=== PATIENT | female | born 1960 | race Caucasian/White ===

== ENCOUNTER 2020-06-27 01:11 | Inpatient (IN) | payer OTHER ==
[2020-06-27] MEDS ORDERED: SODIUM CHLORIDE 0.9% 1,000 ML IV STA ×3 (01:18→03:30)
--- NOTE | 2020-06-27 01:19 | ED ---
Altered Mental Status HPI - General Stated Complaint: altered mental status Time Seen by Provider: 06/27/20 01:15 Source: RN notes reviewed, old records reviewed Limitations: altered mental status, physical limitation - History of Present Illness Initial Comments: This is a 5-year-old female DF for evaluation patient Dese for altered mental status with history of liver disease. No prior hospitalizations here in the ER history. From EMS and patient's family patient unable to provide history secondary to encephalopathy, she is significantly altered MD Complaint: altered mental status, confusion -: days(s) Severity: mild Consistency of Symptoms: getting worse Context: history of similar presentation, liver disease, other (History of liver disease) Associated Symptoms: weakness - Related Data Allergies Allergy/AdvReac Type Severity Reaction Status Date / Time Unable to Assess Allergy Verified 06/27/20 01:22 Review of Systems ROS Statement: Those systems with pertinent positive or pertinent negative responses have been documented in the HPI. ROS Other: All systems not noted in ROS Statement are negative. General Exam Limitations: altered mental status General appearance: alert, in no apparent distress Head exam: Present: atraumatic, normocephalic, normal inspection Eye exam: Present: normal appearance, PERRL, EOMI. Absent: scleral icterus, conjunctival injection, periorbital swelling ENT exam: Present: normal exam, mucous membranes moist Neck exam: Present: normal inspection. Absent: tenderness, meningismus, lymphadenopathy Respiratory exam: Present: normal lung sounds bilaterally. Absent: respiratory distress, wheezes, rales, rhonchi, stridor Cardiovascular Exam: Present: regular rate, normal rhythm, normal heart sounds. Absent: systolic murmur, diastolic murmur, rubs, gallop, clicks GI/Abdominal exam: Present: soft, normal bowel sounds. Absent: distended, tenderness, guarding, rebound, rigid Extremities exam: Present: normal inspection, full ROM, normal capillary refill. Absent: tenderness, pedal edema, joint swelling, calf tenderness Back exam: Present: normal inspection Neurological exam: Present: alert, oriented X3, CN II-XII intact Psychiatric exam: Present: normal affect, normal mood Skin exam: Present: warm, dry, intact, normal color. Absent: rash Course Vital Signs 06/27/20 01:14 Temperature 98.2 F Pulse Rate 94 Respiratory 16 Rate Blood Pressure 114/88 O2 Sat by Pulse 100 Oximetry - Reevaluation(s) Reevaluation #1: 06/27/20 03:36 Medical record is reviewed Reevaluation #2: 06/27/20 03:36 Patient has no significant clinical condition changes here in the ER no improvement - Consultations Consultation #1: Spoke with Dr. Jimbo hearn who agreed to admit this patient Medical Decision Making - Medical Decision Making 59 female who we will admit for hepatic encephalopathy with confounding pancreatitis. Patient has history of liver disease, unknown drug or alcohol abuse history. Patient unable to find history secondary to severe encephalopathy - Lab Data Result diagrams: 06/27/20 01:30 06/27/20 01:30 Lab Results 06/27/20 06/27/20 06/27/20 Range/Units 01:30 01:30 01:30 WBC 8.4 (3.8-10.6) k/uL RBC 2.86 L (3.80-5.40) m/uL Hgb 10.0 L (11.4-16.0) gm/dL Hct 31.0 L (34.0-46.0) % MCV 108.6 H (80.0-100.0) fL MCH 34.9 (25.0-35.0) pg MCHC 32.1 (31.0-37.0) g/dL RDW 15.9 H (11.5-15.5) % Plt Count 155 (150-450) k/uL MPV 7.3 Neutrophils % (Manual) 68 % Lymphocytes % (Manual) 21 % Monocytes % (Manual) 10 % Eosinophils % (Manual) 1 % Neutrophils # (Manual) 5.71 (1.3-7.7) k/uL Lymphocytes # (Manual) 1.76 (1.0-4.8) k/uL Monocytes # (Manual) 0.84 (0-1.0) k/uL Eosinophils # (Manual) 0.08 (0-0.7) k/uL Nucleated RBCs 0 (0-0) /100 WBC Differential Comment Manual Slide Review Performed Polychromasia Present Poikilocytosis (manual Present Macrocytosis Marked A PT 17.0 H (9.0-12.0) sec INR 1.7 H (<1.2) Sodium 136 L (137-145) mmol/L Potassium 3.8 (3.5-5.1) mmol/L Chloride 107 (98-107) mmol/L Carbon Dioxide 22 (22-30) mmol/L Anion Gap 7 mmol/L BUN 30 H (7-17) mg/dL Creatinine 0.96 (0.52-1.04) mg/dL Est GFR (CKD-EPI)AfAm 74 (>60 ml/min/1.73 sqM) Est GFR (CKD-EPI)NonAf 65 (>60 ml/min/1.73 sqM) Glucose 106 H (74-99) mg/dL Plasma Lactic Acid Marino (0.7-2.0) mmol/L Calcium 8.9 (8.4-10.2) mg/dL Phosphorus 3.3 (2.5-4.5) mg/dL Magnesium 1.9 (1.6-2.3) mg/dL Total Bilirubin 3.8 H (0.2-1.3) mg/dL AST 220 H (14-36) U/L ALT 47 H (4-34) U/L Alkaline Phosphatase 81 (38-126) U/L Ammonia (<30) umol/L Total Protein 7.1 (6.3-8.2) g/dL Albumin 3.0 L (3.5-5.0) g/dL Lipase 1235 H (23-300) U/L Urine Color Urine Appearance (Clear) Urine pH (5.0-8.0) Ur Specific [place] (1.001-1.035) Urine Protein (Negative) Urine Glucose (UA) (Negative) Urine Ketones (Negative) Urine Blood (Negative) Urine Nitrite (Negative) Urine Bilirubin (Negative) Urine Urobilinogen (<2.0) mg/dL Ur Leukocyte Esterase (Negative) Urine RBC (0-5) /hpf Urine WBC (0-5) /hpf Urine Bacteria (None) /hpf Urine Opiates Screen (NotDetected) Ur Oxycodone Screen (NotDetected) Urine Methadone Screen (NotDetected) Ur Propoxyphene Screen (NotDetected) Ur Barbiturates Screen (NotDetected) U Tricyclic Antidepress (NotDetected) Ur Phencyclidine Scrn (NotDetected) Ur Amphetamines Screen (NotDetected) U Methamphetamines Scrn (NotDetected) U Benzodiazepines Scrn (NotDetected) Urine Cocaine Screen (NotDetected) U Marijuana (THC) Screen (NotDetected) Serum Alcohol <10 mg/dL 06/27/20 06/27/20 Range/Units 01:50 02:21 WBC (3.8-10.6) k/uL RBC (3.80-5.40) m/uL Hgb (11.4-16.0) gm/dL Hct (34.0-46.0) % MCV (80.0-100.0) fL MCH (25.0-35.0) pg MCHC (31.0-37.0) g/dL RDW (11.5-15.5) % Plt Count (150-450) k/uL MPV Neutrophils % (Manual) % Lymphocytes % (Manual) % Monocytes % (Manual) % Eosinophils % (Manual) % Neutrophils # (Manual) (1.3-7.7) k/uL Lymphocytes # (Manual) (1.0-4.8) k/uL Monocytes # (Manual) (0-1.0) k/uL Eosinophils # (Manual) (0-0.7) k/uL Nucleated RBCs (0-0) /100 WBC Differential Comment Manual Slide Review Polychromasia Poikilocytosis (manual Macrocytosis PT (9.0-12.0) sec INR (<1.2) Sodium (137-145) mmol/L Potassium (3.5-5.1) mmol/L Chloride (98-107) mmol/L Carbon Dioxide (22-30) mmol/L Anion Gap mmol/L BUN (7-17) mg/dL Creatinine (0.52-1.04) mg/dL Est GFR (CKD-EPI)AfAm (>60 ml/min/1.73 sqM) Est GFR (CKD-EPI)NonAf (>60 ml/min/1.73 sqM) Glucose (74-99) mg/dL Plasma Lactic Acid Marino 3.4 H* (0.7-2.0) mmol/L Calcium (8.4-10.2) mg/dL Phosphorus (2.5-4.5) mg/dL Magnesium (1.6-2.3) mg/dL Total Bilirubin (0.2-1.3) mg/dL AST (14-36) U/L ALT (4-34) U/L Alkaline Phosphatase (38-126) U/L Ammonia 231 H (<30) umol/L Total Protein (6.3-8.2) g/dL Albumin (3.5-5.0) g/dL Lipase (23-300) U/L Urine Color Yellow Urine Appearance Cloudy H (Clear) Urine pH 5.5 (5.0-8.0) Ur Specific [place] 1.019 (1.001-1.035) Urine Protein Trace H (Negative) Urine Glucose (UA) Negative (Negative) Urine Ketones Negative (Negative) Urine Blood Negative (Negative) Urine Nitrite Negative (Negative) Urine Bilirubin Negative (Negative) Urine Urobilinogen <2.0 (<2.0) mg/dL Ur Leukocyte Esterase Small H (Negative) Urine RBC <1 (0-5) /hpf Urine WBC 1 (0-5) /hpf Urine Bacteria Rare H (None) /hpf Urine Opiates Screen Not Detected (NotDetected) Ur Oxycodone Screen Not Detected (NotDetected) Urine Methadone Screen Not Detected (NotDetected) Ur Propoxyphene Screen Not Detected (NotDetected) Ur Barbiturates Screen Not Detected (NotDetected) U Tricyclic Antidepress Not Detected (NotDetected) Ur Phencyclidine Scrn Not Detected (NotDetected) Ur Amphetamines Screen Not Detected (NotDetected) U Methamphetamines Scrn Not Detected (NotDetected) U Benzodiazepines Scrn Not Detected (NotDetected) Urine Cocaine Screen Not Detected (NotDetected) U Marijuana (THC) Screen Not Detected (NotDetected) Serum Alcohol mg/dL Disposition Clinical Impression: Altered mental status, Hepatic encephalopathy Disposition: ADMITTED IP TO THIS [facility] Condition: Serious Is patient prescribed a controlled substance at d/c from ED?: No Referrals: None,Stated [Primary Care Provider] - 1-2 days
[2020-06-27 01:49] LABS: INR 1.7 (<1.2)
[2020-06-27 01:53] LABS: ALT 47 U/L (4-34); AST 220 U/L (14-36); African American GFR (CKD) 74 (>60 ml/min/1.73 sqM); Alcohol <10 mg/dL; Alkaline Phosphatase 81 U/L (38-126); Anion Gap 7 mmol/L; Blood Urea Nitrogen 30 mg/dL (7-17); Calcium 8.9 mg/dL (8.4-10.2); Carbon Dioxide 22 mmol/L (22-30); Chloride 107 mmol/L (98-107); Glucose 106 mg/dL (74-99); Lipase 1235 U/L (23-300); Magnesium 1.9 mg/dL (1.6-2.3); Non-African American GFR(CKD) 65 (>60 ml/min/1.73 sqM); Phosphorus 3.3 mg/dL (2.5-4.5); Potassium 3.8 mmol/L (3.5-5.1); Sodium 136 mmol/L (137-145); Total Bilirubin 3.8 mg/dL (0.2-1.3); Total Protein 7.1 g/dL (6.3-8.2)
[2020-06-27 01:55] LABS: MCH 34.9 pg (25.0-35.0); MCHC 32.1 g/dL (31.0-37.0); MCV 108.6 fL (80.0-100.0); Macrocytosis Marked; Mean Platelet Volume 7.3; Platelet Count 155 k/uL (150-450); RBC 2.86 m/uL (3.80-5.40); RDW 15.9 % (11.5-15.5); WBC 8.4 k/uL (3.8-10.6)
[2020-06-27 02:29] LABS: Eosinophils # (M) 0.08 k/uL (0-0.7); Lymphocytes # (M) 1.76 k/uL (1.0-4.8); Monocytes # (M) 0.84 k/uL (0-1.0); Neutrophils # (M) 5.71 k/uL (1.3-7.7); Neutrophils % (M) 68 %; Nucleated Red Blood Cells 0 /100 WBC (0-0); Total Cells Counted 100
[2020-06-27 02:30] LABS: Poikilocytosis (M) Present; Polychromasia Present
[2020-06-27 02:58] LABS: Lactic Acid, Venous 3.4 mmol/L (0.7-2.0)
[2020-06-27 03:17] LABS: Appearance,Urine Cloudy (Clear); Bacteria,Urine Rare /hpf; Bilirubin,Urine Negative (Negative); Blood,Urine Negative (Negative); Color,Urine Yellow; Glucose,Urine (UA) Negative (Negative); Ketones,Urine Negative (Negative); Leukocyte Esterase,Urine Small (Negative); Nitrite,Urine Negative (Negative); PH, Urine 5.5 (5.0-8.0); Protein,Urine Trace (Negative); RBC,Urine <1 /hpf (0-5); Specific Gravity,Urine 1.019 (1.001-1.035); Urobilinogen,Urine <2.0 mg/dL (<2.0); WBC,Urine 1 /hpf (0-5)
[2020-06-27 03:18] LABS: Amphetamine Screen,Urine Not Detected (NotDetected); Barbiturate Screen,Urine Not Detected (NotDetected); Benzodiazepines Screen,Urine Not Detected (NotDetected); Cocaine Screen,Urine Not Detected (NotDetected); Methadone Screen, Urine Not Detected (NotDetected); Opiate Screen,Urine Not Detected (NotDetected); Oxycodone Screen, Urine Not Detected (NotDetected); Phencyclidine Screen,Urine Not Detected (NotDetected); Tricyclic Antidepressant,Urine Not Detected (NotDetected); Urn Cannabinoid Scrn Not Detected (NotDetected)
[2020-06-27] MEDS ORDERED: NALOXONE 0.4 MG/ML 1 ML VIAL IV PRN (03:30)
[2020-06-27] MEDS ORDERED: THIAMINE 100 MG/ML 2 ML VIAL IM STA (03:30)
[2020-06-27] MEDS ORDERED: SODIUM CHLORIDE 0.9% 500 ML 500 ML IV STA (03:30)
[2020-06-27] MEDS ORDERED: LORazepam 2 MG/ML INJ IV PRN ×3 (03:30)
[2020-06-27] MEDS ORDERED: LACTULOSE 200 GM/300 ML (FROM 1/2 GAL JUG) RECTAL ONE (04:00)
[2020-06-27] MEDS: DEXTROSE 5%-0.45% NACL 1,000 ML IV SCH ×2 (04:05→16:38)
--- NOTE | 2020-06-27 05:00 | P.HPIM ---
History of Present Illness H&P Date: 06/27/20 Patient is a 59-year-old female with a PMH of liver disease of unknown etiology who was brought into the emergency room due to altered mental status. The patient had apparently recently been evaluated at [facility] where she had undergone a paracentesis (based upon the papers brought in by EMS provided to them by patient's friends). She had been staying with a group of friends since then the noted that the patient's mentation gradually worsened to the point where she was unaware of her surroundings and not able to converse. At time of the interview, the patient was stuporous with moaning and moving extremities upon stimulation. No history obtained. Attempted to contact the friends on the number in the chart ([phone]) with no response. The patient's evaluation from the emergency room was reviewed with laboratory evaluation showing an ammonia of 231, lipase 1235, albumin 3.0, AST 220, ALT 47, lactic acid 3.4, INR 1.7, and a hemoglobin of 10.0. Review of Systems ROS unobtainable: due to mental status Past Medical History Past Medical History: Liver Disease History of Any Multi-Drug Resistant Organisms: Unobtainable Past Psychological History: Unable to Obtain Smoking Status: Unknown if ever smoked Past Alcohol Use History: Unable to Obtain Past Drug Use History: Unable to Obtain Medications and Allergies Allergies Allergy/AdvReac Type Severity Reaction Status Date / Time Unable to Assess Allergy Verified 06/27/20 01:22 Physical Exam Vitals: Vital Signs Temp Pulse Resp BP Pulse Ox 06/27/20 04:00 86 16 114/66 98 06/27/20 03:00 80 16 107/70 98 06/27/20 02:00 83 16 101/64 99 06/27/20 01:14 98.2 F 94 16 114/88 100 Intake and Output 06/26/20 06/26/20 06/27/20 14:59 22:59 06:59 Other: Weight 83.915 kg General: Jaundiced female, no distress, appears at stated age, overweight Derm: no unusual rashes/lesions, no unusual ecchymoses, warm, dry Head: atraumatic, normocephalic, symmetric Eyes:Scleral icterus, pupils equal round reactive to light ENT: Nose and ears atraumatic Neck: No thyromegaly, no cervical lymphadenopathy, trachea midline, supple Mouth: no lip lesion Cardiovascular: S1S2 reg, no murmur, positive posterior tibial pulse bilateral, 1+ bilateral lower extremity pitting edema, capillary refill less than 2 seconds Lungs: CTA bilateral, no rhonchi, no rales , no accessory muscle use Abdominal: Distended with palpable fluid thrill, no guarding Ext: no gross muscle atrophy, no contractures, Neuro: Not following commands, moving all extremities Psych: Stuporous Results CBC & Chem 7: 06/27/20 01:30 06/27/20 01:30 Labs: Abnormal Lab Results - Last 24 Hours (Table) 06/27/20 06/27/20 06/27/20 Range/Units 01:30 01:30 01:30 RBC 2.86 L (3.80-5.40) m/uL Hgb 10.0 L (11.4-16.0) gm/dL Hct 31.0 L (34.0-46.0) % MCV 108.6 H (80.0-100.0) fL RDW 15.9 H (11.5-15.5) % Macrocytosis Marked A PT 17.0 H (9.0-12.0) sec INR 1.7 H (<1.2) Sodium 136 L (137-145) mmol/L BUN 30 H (7-17) mg/dL Glucose 106 H (74-99) mg/dL Plasma Lactic Acid Mar[place] (0.7-2.0) mmol/L Total Bilirubin 3.8 H (0.2-1.3) mg/dL AST 220 H (14-36) U/L ALT 47 H (4-34) U/L Ammonia (<30) umol/L Albumin 3.0 L (3.5-5.0) g/dL Lipase 1235 H (23-300) U/L Urine Appearance (Clear) Urine Protein (Negative) Ur Leukocyte Esterase (Negative) Urine Bacteria (None) /hpf 06/27/20 06/27/20 Range/Units 01:50 02:21 RBC (3.80-5.40) m/uL Hgb (11.4-16.0) gm/dL Hct (34.0-46.0) % MCV (80.0-100.0) fL RDW (11.5-15.5) % Macrocytosis PT (9.0-12.0) sec INR (<1.2) Sodium (137-145) mmol/L BUN (7-17) mg/dL Glucose (74-99) mg/dL Plasma Lactic Acid Marino 3.4 H* (0.7-2.0) mmol/L Total Bilirubin (0.2-1.3) mg/dL AST (14-36) U/L ALT (4-34) U/L Ammonia 231 H (<30) umol/L Albumin (3.5-5.0) g/dL Lipase (23-300) U/L Urine Appearance Cloudy H (Clear) Urine Protein Trace H (Negative) Ur Leukocyte Esterase Small H (Negative) Urine Bacteria Rare H (None) /hpf Assessment and Plan Plan: Hepatic encephalopathy in setting of liver failure -Unclear etiology -Attempt to obtain collateral information from [facility] or friends in a.m. -GI consult -Continue with lactulose -Monitor liver function tests and lipase levels Lactic acidosis -Monitor to resolution Macrocytic anemia -Continue to monitor for now -Check Folic acid and B12 levels Elevated INR -Likely due to chronic liver disease -No signs of active bleeding at this time -Monitor for now DVT prophylaxis -IPCDs The patient is admitted with an anticipated greater than 2 midnight stay for evaluation of Hepatic encephalopathy CODE STATUS: Full Code Discussed with: Patient Anticipated discharge date: 3-[address]: Home A total of 40 minutes was spent on the care of this complex patient more than 50% of the time was spent in counseling and care coordination.
[2020-06-27 06:38] LABS: HCT 29.4 % (34.0-46.0); HGB 9.8 gm/dL (11.4-16.0); MCH 36.5 pg (25.0-35.0); MCHC 33.5 g/dL (31.0-37.0); Macrocytosis Marked; Mean Platelet Volume 7.7; Platelet Count 129 k/uL (150-450); RDW 15.4 % (11.5-15.5); WBC 6.8 k/uL (3.8-10.6)
[2020-06-27 06:50] LABS: MCV 108.9 fL (80.0-100.0)
[2020-06-27] MEDS: PANTOPRAZOLE 40 MG/10 ML VIAL IV SCH (07:51)
[2020-06-27 08:17] LABS: Lactic Acid, Venous 1.9 mmol/L (0.7-2.0)
[2020-06-27] MEDS: LACTULOSE 200 GM/300 ML (FROM 1/2 GAL JUG) RECTAL SCH ×3 (11:31→23:40)
--- NOTE | 2020-06-27 11:59 | P.PN ---
Progress Note - Text Progress Note Date: 06/27/20 Pt seen at bedside today, she was not able to be aroused to voice, but did groan and appeared very sleepy. Does not appear to be in any pain or distress at the moment. Records from [place] are pending, I asked the unit to send request. Unclear etiology of liver failure, but hepatic encephalopathy is primary on the differential. physical exam: Gen: asleep, lethargic Resp: breathing adequately without accessory muscle use, symmetric and adequate chest expansion with breathing, not tachypneic CVS: perfusing all extremities well GI: soft, NTTP, ND : no SPT, +sneed catheter MSK: no pitting edema, no clubbing A/P: obtaining records from [place] continue with rectal lactulose with plan for 4 BMs per day GI consult pending daily INR
[2020-06-27 13:04] LABS: INR 1.6 (0.90-1.11); Prothrombin Time 16.7 sec (9.9-11.9)
[2020-06-27] MEDS: THIAMINE 100 MG TAB PO SCH (17:38)
--- NOTE | 2020-06-27 20:08 | P.CONS ---
History of Present Illness - Reason for Consult Consult date: 06/27/20 Cirrhosis, hepatic encephalopathy Requesting physician: Abisai Dunlap - Chief Complaint Altered mental status - History of Present Illness 59-year-old female with a reported medical history of cirrhosis who presented to the hospital due to altered mental status. Of note the patient is currently unable to provide history due to her mental status and history is been taken in discussion with the medical team and on review of the chart medical record. Apparently, patient was recently hospitalized at [facility] for decompensated liver disease and underwent paracentesis at that time. Patient's mentation continue to worsen after hospitalization and she was brought to the hospital for further evaluation. Unclear etiology of cirrhosis. Unclear if the patient had been compliant with discharge medications. We're awaiting reports from previous hospitalization. Laboratory evaluation significant for WBC 6.8, hemoglobin 9.8 from 10.0, INR 1.6, platelet count 129,000, total bilirubin 3.8, alkaline phosphatase 81, AST 220, ALTs 47. Ammonia level on presentation 231 and 193 today. The patient has been receiving rectal lactulose therapy and has had 2 bowel movements today. Review of Systems ROS unobtainable: due to mental status (Could not be obtained due to AMS secondary to encephalopathy) Past Medical History Past Medical History: Liver Disease History of Any Multi-Drug Resistant Organisms: Unobtainable Past Psychological History: Unable to Obtain Smoking Status: Unknown if ever smoked Past Alcohol Use History: Unable to Obtain Past Drug Use History: Unable to Obtain Additional History: Family History;. Could not obtain due to altered mental status. Medications and Allergies Home Medications Medication Instructions Recorded Confirmed Type Unable To Assess [Unable to Assess] 06/27/20 06/27/20 History Allergies Allergy/AdvReac Type Severity Reaction Status Date / Time nickel Allergy Rash/Hives Verified 06/27/20 18:47 silver Allergy Rash/Hives Verified 06/27/20 18:47 Physical Exam Vitals: Vital Signs Temp Pulse Pulse Resp BP BP Pulse Ox 06/27/20 07:52 98.5 F 97 16 104/61 96 06/27/20 04:43 98.4 F 80 18 107/63 100 06/27/20 04:00 86 16 114/66 98 06/27/20 03:00 80 16 107/70 98 06/27/20 02:00 83 16 101/64 99 06/27/20 01:14 98.2 F 94 16 114/88 100 Intake and Output 06/26/20 06/27/20 06/27/20 22:59 06:59 14:59 Other: Voiding Method Incontinent # Bowel Movements 1 Weight 83.915 kg On physical examination, patient appears comfortable in no apparent distress. HEAD: Normocephalic, atraumatic. EYES: No scleral icterus. No conjunctival injection. MOUTH: No lesions, tongue midline. NECK: Trachea midline, no gross abnormalities. CHEST: Clear to auscultation with no wheezing or rhonchi appreciated. HEART: Regular rate and rhythm. ABDOMEN: Soft, obese. Bowel sounds are positive. No organomegaly. No guarding or rigidity. EXTREMITIES: No pedal edema. SKIN: No rashes, no jaundice. NEUROLOGIC: Alert and oriented x0 but arousable. No focal deficits. Results CBC & Chem 7: 06/27/20 06:21 06/27/20 01:30 Labs: Abnormal Lab Results - Last 24 Hours (Table) 06/27/20 06/27/20 06/27/20 Range/Units 01:30 01:30 01:30 RBC 2.86 L (3.80-5.40) m/uL Hgb 10.0 L (11.4-16.0) gm/dL Hct 31.0 L (34.0-46.0) % MCV 108.6 H (80.0-100.0) fL MCH (25.0-35.0) pg RDW 15.9 H (11.5-15.5) % Plt Count (150-450) k/uL Macrocytosis Marked A PT 17.0 H (9.0-12.0) sec INR 1.7 H (<1.2) Sodium 136 L (137-145) mmol/L BUN 30 H (7-17) mg/dL Glucose 106 H (74-99) mg/dL Plasma Lactic Acid [place] (0.7-2.0) mmol/L Total Bilirubin 3.8 H (0.2-1.3) mg/dL AST 220 H (14-36) U/L ALT 47 H (4-34) U/L Ammonia (<30) umol/L Albumin 3.0 L (3.5-5.0) g/dL Lipase 1235 H (23-300) U/L Vitamin B12 (200.0-944.0) pg/mL Urine Appearance (Clear) Urine Protein (Negative) Ur Leukocyte Esterase (Negative) Urine Bacteria (None) /hpf 06/27/20 06/27/20 06/27/20 Range/Units 01:50 02:21 06:21 RBC 2.70 L (3.80-5.40) m/uL Hgb 9.8 L (11.4-16.0) gm/dL Hct 29.4 L (34.0-46.0) % MCV 108.9 H (80.0-100.0) fL MCH 36.5 H (25.0-35.0) pg RDW (11.5-15.5) % Plt Count 129 L (150-450) k/uL Macrocytosis Marked A PT (9.0-12.0) sec INR (<1.2) Sodium (137-145) mmol/L BUN (7-17) mg/dL Glucose (74-99) mg/dL Plasma Lactic Acid [place] 3.4 H* (0.7-2.0) mmol/L Total Bilirubin (0.2-1.3) mg/dL AST (14-36) U/L ALT (4-34) U/L Ammonia 231 H (<30) umol/L Albumin (3.5-5.0) g/dL Lipase (23-300) U/L Vitamin B12 (200.0-944.0) pg/mL Urine Appearance Cloudy H (Clear) Urine Protein Trace H (Negative) Ur Leukocyte Esterase Small H (Negative) Urine Bacteria Rare H (None) /hpf 06/27/20 06/27/20 06/27/20 Range/Units 06:21 06:21 06:21 RBC (3.80-5.40) m/uL Hgb (11.4-16.0) gm/dL Hct (34.0-46.0) % MCV (80.0-100.0) fL MCH (25.0-35.0) pg RDW (11.5-15.5) % Plt Count (150-450) k/uL Macrocytosis PT 16.7 H (9.0-12.0) sec INR 1.60 H (<1.2) Sodium (137-145) mmol/L BUN (7-17) mg/dL Glucose (74-99) mg/dL Plasma Lactic Acid [place] (0.7-2.0) mmol/L Total Bilirubin (0.2-1.3) mg/dL AST (14-36) U/L ALT (4-34) U/L Ammonia 193 H (<30) umol/L Albumin (3.5-5.0) g/dL Lipase (23-300) U/L Vitamin B12 1693.0 H (200.0-944.0) pg/mL Urine Appearance (Clear) Urine Protein (Negative) Ur Leukocyte Esterase (Negative) Urine Bacteria (None) /hpf Assessment and Plan (1) Hepatic encephalopathy Narrative/Plan: 59-year-old female with a medical history significant for decompensated cirrhosis of unknown etiology who presented to the hospital for evaluation of worsening mentation. Markedly elevated ammonia level on presentation of 231 the patient is currently receiving rectal lactulose therapy due to her mental status. She is previously required paracentesis. Liver enzymes are suggestive of alcoholic cirrhosis with total bilirubin 3.8, pleasant phosphatase 81, AST 220 and ALTs 47. Current Visit: Yes Status: Acute Code(s): K72.90 - HEPATIC FAILURE, UNSPE CIFIED WITHOUT COMA SNOMED Code(s): 32560392 (2) Decompensation of cirrhosis of liver Current Visit: Yes Status: Acute Code(s): K72.90 - HEPATIC FAILURE, UNSPECIFIED WITHOUT COMA; K74.60 - UNSPECIFIED CIRRHOSIS OF LIVER SNOMED Code(s): 910506227 (3) Altered mental status Current Visit: Yes Status: Acute Code(s): R41.82 - ALTERED MENTAL STATUS, UNSPECIFIED SNOMED Code(s): 927660972 Plan: Supportive care Nothing by mouth, secondary to mentation can advance to low sodium diet this mentation improves Continue to monitor CBC, BMP, LFTs and INR Continue to monitor clinically Continue rectal lactulose therapy if no improvement in mentation tomorrow can increased frequency and consider placement of a nasogastric tube to allow the patient to receive oral lactulose through the tube Await documentation from prior hospitalization at [facility] Thank you for allowing us to participate in the care of the patient we will continue to follow
[2020-06-28] MEDS: DEXTROSE 5%-0.45% NACL 1,000 ML IV SCH ×2 (03:51→11:24)
[2020-06-28] MEDS: LACTULOSE 200 GM/300 ML (FROM 1/2 GAL JUG) RECTAL SCH ×2 (04:46→11:07)
[2020-06-28 06:52] LABS: HCT 31.4 % (34.0-46.0); HGB 9.8 gm/dL (11.4-16.0); MCH 34.6 pg (25.0-35.0); MCHC 31.2 g/dL (31.0-37.0); Macrocytosis Marked; Mean Platelet Volume 7.3; Platelet Count 126 k/uL (150-450); RBC 2.84 m/uL (3.80-5.40); RDW 15.7 % (11.5-15.5); WBC 5.8 k/uL (3.8-10.6)
[2020-06-28 06:56] LABS: MCV 110.8 fL (80.0-100.0)
[2020-06-28] MEDS: PANTOPRAZOLE 40 MG/10 ML VIAL IV SCH (07:23)
[2020-06-28 08:16] LABS: Band Neutrophils % 1 %; Eosinophils # (M) 0.17 k/uL (0-0.7); Lymphocytes # (M) 0.99 k/uL (1.0-4.8); Monocytes # (M) 0.41 k/uL (0-1.0); Neutrophils % (M) 72 %; Nucleated Red Blood Cells 0 /100 WBC (0-0); Total Cells Counted 100
[2020-06-28] MEDS: THIAMINE 100 MG TAB PO SCH ×2 (08:34→17:18)
[2020-06-28 10:18] LABS: African American GFR (CKD) 80.5 (60.0-200.0); Albumin 2.5 g/dL (3.80-4.90); Albumin/Globulin Ratio 0.78 (1.60-3.17); Anion Gap 4.8 mmol/L (4.00-12.00); BUN/Creat Ratio 25.56 Ratio (12.00-20.00); Calcium 8.3 mg/dL (8.7-10.3); Carbon Dioxide 23.2 mmol/L (21.6-31.8); Globulin 3.2 g/dL (1.6-3.3); Magnesium 1.7 mg/dL (1.5-2.4); Non-African American GFR(CKD) 69.5 (60.0-200.0); Phosphorus 3.2 mg/dL (2.4-5.1); Potassium 3.4 mmol/L (3.5-5.5); Total Bilirubin 5.4 mg/dL (0.2-1.2); Total Protein 5.7 g/dL (6.2-8.2)
[2020-06-28] MEDS: LACTULOSE 20 GM/30 ML CUP PO SCH ×4 (11:24→21:28)
--- NOTE | 2020-06-28 14:31 | P.PN ---
Subjective Progress Note Date: 06/28/20 No new complaints at this time. Mentation has significantly improved, and continues to improve. No complaints of pain anywhere. Records reviewed from [facility], patient has JUAN with cirrhosis, ovarian mass with appears neoplastic, paraproteinemia. Patient already has appropriate follow up for these issues. Objective - Vital Signs Vital signs: Vital Signs Temp 98.3 F 06/28/20 08:00 Pulse 85 06/28/20 08:00 Resp 18 06/28/20 08:00 BP 103/66 06/28/20 08:00 Pulse Ox 98 06/28/20 08:00 Intake & Output 06/27/20 06/28/20 06/28/20 18:59 06:59 18:59 Intake Total 680 Balance 680 Intake: IV 680 Dextrose 5%-0.45% NaCl 1, 680 000 ml @ 85 mls/hr IV . [id number] [facility] Rx#:[id number] Other: Voiding Method Incontinent Incontinent Incontinent # Voids 1 2 # Bowel Movements 1 3 - Exam Gen: awake, alert HEENT: normocephalic, atraumatic, good hearing acuity, moist mucous membranes Resp: good air exchange, breathing comfortably with no accessory muscle use CVS: good distal perfusion x 4, GI: soft, NTTP, distended, but not tense : no SPT, no CVAT, sneed catheter not present MSK: no pitting edema, no clubbing Neuro: non-focal, moving all extremities Psych: cooperative, euthymic mood - Labs CBC & Chem 7: 06/28/20 06:15 06/28/20 06:15 Labs: Abnormal Lab Results - Last 24 Hours (Table) 06/28/20 06/28/20 06/28/20 Range/Units 06:15 06:15 06:15 RBC 2.84 L (3.80-5.40) m/uL Hgb 9.8 L (11.4-16.0) gm/dL Hct 31.4 L (34.0-46.0) % MCV 110.8 H (80.0-100.0) fL RDW 15.7 H (11.5-15.5) % Plt Count 126 L (150-450) k/uL Lymphocytes # (Manual) 0.99 L (1.0-4.8) k/uL Macrocytosis Marked A Potassium 3.4 L (3.5-5.5) mmol/L Chloride 111 H (96-109) mmol/L BUN/Creatinine Ratio 25.56 H (12.00-20.00) Ratio Calcium 8.3 L (8.7-10.3) mg/dL Total Bilirubin 5.4 H (0.2-1.2) mg/dL AST 178 H (13-35) U/L ALT 49 H (8-44) U/L Ammonia 54 H (<30) umol/L Total Protein 5.7 L (6.2-8.2) g/dL Albumin 2.50 L (3.80-4.90) g/dL Albumin/Globulin Ratio 0.78 L (1.60-3.17) g/dL Lipase 114 H (14-63) U/L Assessment and Plan Assessment: 1. Hepatic Encephalopathy 2. JUAN with cirrhosis 3. Ovarian Neoplasm 59 year old woman who presented with lethargy and liver failure was discovered to have hepatic encephalopathy secondary to JUAN upon review of [facility] Records. 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 (patient still considering surgery) -GI consult, appreciate recs -Continue with lactulose, switched from rectal to oral -will add rifaximin -Monitor liver function tests and lipase levels Lactic acidosis -Monitor to resolution Macrocytic anemia -Continue to monitor for now -Check Folic acid and B12 levels Elevated INR -Likely due to chronic liver disease -No signs of active bleeding at this time -Monitor for now DVT prophylaxis -IPCDs The patient is admitted with an anticipated greater than 2 midnight stay for evaluation of Hepatic encephalopathy CODE STATUS: Full Code Discussed with: Patient Anticipated discharge date: 3-[address]: Home
--- NOTE | 2020-06-28 17:59 | P.PN ---
Subjective Progress Note Date: 06/28/20 Principal diagnosis: Decompensated Hill cirrhosis, hepatic encephalopathy Patient seen sitting bedside today with mentation much improved. No complaints of abdominal pain. The patient has been transitioned to oral lactulose therapy. Objective - Vital Signs Vital signs: Vital Signs Temp 98.3 F 06/28/20 08:00 Pulse 85 06/28/20 08:00 Resp 18 06/28/20 08:00 BP 103/66 06/28/20 08:00 Pulse Ox 98 06/28/20 08:00 Intake & Output 06/27/20 06/28/20 06/28/20 18:59 06:59 18:59 Intake Total 680 Balance 680 Intake: IV 680 Dextrose 5%-0.45% NaCl 1, 680 000 ml @ 85 mls/hr IV . [id number] [facility] Rx#:[id number] Other: Voiding Method Incontinent Incontinent Incontinent # Voids 1 2 # Bowel Movements 1 3 - Exam On physical examination, patient appears comfortable in no apparent distress. HEAD: Normocephalic, atraumatic. EYES: No scleral icterus. No conjunctival injection. MOUTH: No lesions, tongue midline. NECK: Trachea midline, no gross abnormalities. ABDOMEN: Soft, obese and mildly distended. Bowel sounds are positive. No organomegaly. No guarding or rigidity. EXTREMITIES: No pedal edema. SKIN: No rashes, no jaundice. NEUROLOGIC: Alert and oriented to person, minimal asterixis noted. No focal deficits. - Labs CBC & Chem 7: 06/28/20 06:15 06/28/20 06:15 Labs: Abnormal Lab Results - Last 24 Hours (Table) 06/27/20 06/27/20 06/28/20 Range/Units 06:21 06:21 06:15 RBC 2.84 L (3.80-5.40) m/uL Hgb 9.8 L (11.4-16.0) gm/dL Hct 31.4 L (34.0-46.0) % MCV 110.8 H (80.0-100.0) fL RDW 15.7 H (11.5-15.5) % Plt Count 126 L (150-450) k/uL Lymphocytes # (Manual) 0.99 L (1.0-4.8) k/uL Macrocytosis Marked A PT 16.7 H (9.9-11.9) sec INR 1.60 H (0.90-1.11) Potassium (3.5-5.5) mmol/L Chloride (96-109) mmol/L BUN/Creatinine Ratio (12.00-20.00) Ratio Calcium (8.7-10.3) mg/dL Total Bilirubin (0.2-1.2) mg/dL AST (13-35) U/L ALT (8-44) U/L Ammonia (<30) umol/L Total Protein (6.2-8.2) g/dL Albumin (3.80-4.90) g/dL Albumin/Globulin Ratio (1.60-3.17) g/dL Lipase (14-63) U/L Vitamin B12 1693.0 H (200.0-944.0) pg/mL 06/28/20 06/28/20 Range/Units 06:15 06:15 RBC (3.80-5.40) m/uL Hgb (11.4-16.0) gm/dL Hct (34.0-46.0) % MCV (80.0-100.0) fL RDW (11.5-15.5) % Plt Count (150-450) k/uL Lymphocytes # (Manual) (1.0-4.8) k/uL Macrocytosis PT (9.9-11.9) sec INR (0.90-1.11) Potassium 3.4 L (3.5-5.5) mmol/L Chloride 111 H (96-109) mmol/L BUN/Creatinine Ratio 25.56 H (12.00-20.00) Ratio Calcium 8.3 L (8.7-10.3) mg/dL Total Bilirubin 5.4 H (0.2-1.2) mg/dL AST 178 H (13-35) U/L ALT 49 H (8-44) U/L Ammonia 54 H (<30) umol/L Total Protein 5.7 L (6.2-8.2) g/dL Albumin 2.50 L (3.80-4.90) g/dL Albumin/Globulin Ratio 0.78 L (1.60-3.17) g/dL Lipase 114 H (14-63) U/L Vitamin B12 (200.0-944.0) pg/mL Assessment and Plan (1) Hepatic encephalopathy Narrative/Plan: 59-year-old female with a medical history significant for decompensated cirrhosis of unknown etiology who presented to the hospital for evaluation of worsening mentation. Markedly elevated ammonia level on presentation of 231 the patient is currently receiving rectal lactulose therapy due to her mental status. She is previously required paracentesis. Liver enzymes are suggestive of alcoholic cirrhosis with total bilirubin 3.8, pleasant phosphatase 81, AST 220 and ALTs 47. Ammonia much improved today 54 with patient much more awake and alert and oriented to person. Records from [facility] stating that patient has decompensated Hill cirrhosis with encephalopathy. Current Visit: Yes Status: Acute Code(s): K72.90 - HEPATIC FAILURE, UNSPECIFIED WITHOUT COMA SNOMED Code(s): 78067191 (2) Decompensation of cirrhosis of liver Current Visit: Yes Status: Acute Code(s): K72.90 - HEPATIC FAILURE, UNSPECIFIED WITHOUT COMA; K74.60 - UNSPECIFIED CIRRHOSIS OF LIVER SNOMED Code(s): 249337729 (3) Altered mental status Current Visit: Yes Status: Acute Code(s): R41.82 - ALTERED MENTAL STATUS, UNSPECIFIED SNOMED Code(s): 610225716 Plan: Supportive care Okay for low sodium diet Continue to monitor CBC, BMP, LFTs and INR Continue to monitor clinically Lactulose switched to by mouth 4 times a day Rifaximin added by primary team Thank you for allowing us to participate in the care of the patient we will continue to follow
[2020-06-28] MEDS: RIFAXIMIN 550 MG TABLET PO SCH (21:28)
[2020-06-29] MEDS: DEXTROSE 5%-0.45% NACL 1,000 ML IV SCH (01:01)
[2020-06-29] MEDS: RIFAXIMIN 550 MG TABLET PO SCH ×2 (09:15→21:24)
[2020-06-29] MEDS: PANTOPRAZOLE 40 MG/10 ML VIAL IV SCH (09:15)
[2020-06-29] MEDS: LACTULOSE 20 GM/30 ML CUP PO SCH ×3 (09:15→21:24)
[2020-06-29] MEDS: THIAMINE 100 MG TAB PO SCH ×2 (09:15→18:24)
[2020-06-29 09:39] LABS: HCT 34.9 % (34.0-46.0); HGB 11.3 gm/dL (11.4-16.0); Hypochromasia Slight; MCH 36.5 pg (25.0-35.0); MCHC 32.5 g/dL (31.0-37.0); MCV 112.5 fL (80.0-100.0); Macrocytosis Marked; Mean Platelet Volume 7.5; Platelet Count 144 k/uL (150-450); RDW 14.9 % (11.5-15.5)
--- NOTE | 2020-06-29 11:39 | P.PN ---
Subjective Progress Note Date: 06/29/20 Principal diagnosis: Decompensated Hill cirrhosis, hepatic encephalopathy This patient is a 59-year-old female who came into the emergency department with altered mental status changes. She has a history of decompensated Hill cirrhosis which was recently admitted into [facility]. She was status post paracentesis at that time, according to the hospital record s she had a paracentesis on 1120 with 9.9 L removed, 1123 per 7.2 L removed and again on 06/19/2020 for 6.2 L removed. The patient was seen and examined, she is alert to self, no she is at the hospital, however unsure which one. He is unable to give a good history. She does state she remembers that she had to have a paracentesis, however she does not know why she has liver disease. She is denying any street of alcoholism. On admission her ammonia was 231, today it is 66. She remains on lactulose 4 times a day. She has had 2 bowel movements already this morning. Objective - Vital Signs Vital signs: Vital Signs Temp 98.7 F 06/29/20 07:42 Pulse 87 06/29/20 07:42 Resp 16 06/29/20 07:42 BP 103/64 06/29/20 07:42 Pulse Ox 97 06/29/20 07:42 Intake & Output 06/28/20 06/29/20 06/29/20 18:59 06:59 18:59 Intake Total 1020 Balance 1020 Weight 83.915 kg Intake: IV 1020 Dextrose 5%-0.45% NaCl 1, 1020 000 ml @ 85 mls/hr IV . [id number] [facility] Rx#:[id number] Other: Voiding Method Incontinent Incontinent # Voids 0 # Bowel Movements 4 - Exam General appearance: The patient is alert, oriented, in no acute distress. HET: Head is normocephalic and atraumatic. Conjunctiva pink. Sclera anicteric. Neck: Supple without lymphadenopathy. Abdomen: Soft, nontender, distended with bowel sounds. No guarding or rigidity. Extremities: Normal skin color and turgor. No pedal edema Neurological: No focal deficits. Alert and oriented 3. - Labs CBC & Chem 7: 06/29/20 09:09 06/28/20 06:15 Labs: Abnormal Lab Results - Last 24 Hours (Table) 06/29/20 06/29/20 Range/Units 06:13 09:09 RBC 3.10 L (3.80-5.40) m/uL Hgb 11.3 L (11.4-16.0) gm/dL MCV 112.5 H (80.0-100.0) fL MCH 36.5 H (25.0-35.0) pg Plt Count 144 L (150-450) k/uL Macrocytosis Marked A Ammonia 66 H (<30) umol/L Assessment and Plan (1) Hepatic encephalopathy Narrative/Plan: 59-year-old female with a medical history significant for decompensated cirrhosis of unknown etiology who presented to the hospital for evaluation of worsening mentation. Markedly elevated ammonia level on presentation of 231 the patient is currently receiving rectal lactulose therapy due to her mental status. She is previously required paracentesis. Liver enzymes are suggestive of alcoholic cirrhosis with total bilirubin 3.8, pleasant phosphatase 81, AST 220 and ALTs 47. Ammonia today 66 with patient much more awake and alert and oriented to person. Records from [facility] stating that patient has decompensated Hill cirrhosis with encephalopathy. Current Visit: Yes Status: Acute Code(s): K72.90 - HEPATIC FAILURE, UNSPECIFIED WITHOUT COMA SNOMED Code(s): 46692748 (2) Altered mental status Current Visit: Yes Status: Acute Code(s): R41.82 - ALTERED MENTAL STATUS, UNSPECIFIED SNOMED Code(s): 849612253 (3) Decompensation of cirrhosis of liver Current Visit: Yes Status: Acute Code(s): K72.90 - HEPATIC FAILURE, UNSPECIFIED WITHOUT COMA; K74.60 - UNSPECIFIED CIRRHOSIS OF LIVER SNOMED Co de(s): 411404180 Plan: Supportive care Okay for low sodium diet Continue to monitor CBC, BMP, LFTs and INR Continue to monitor clinically Lactulose switched to by mouth 4 times a day, titrate for 3-4 bowel movements daily Rifaximin added by primary team Patient will need follow-up with her gastroenterology, pattern mechanic Dr. Palma for possible liver transplant Thank you for allowing us to participate in the care of the patient we will continue to follow Dr. Dara Davila I agree with the dictator's note, documented as a scribe by Yumiko House
--- NOTE | 2020-06-29 12:11 | P.PN ---
Subjective Progress Note Date: 06/29/20 Patient is lethargic but easily arousable. She was oriented to herself and to the place. She was very slow answering my questions. She did not know how many times a day she takes her lactulose at home. Nursing staff informed me that patient had multiple bowel movements since last night for of them. No acute events overnight reported by nursing staff. Objective - Vital Signs Vital signs: Vital Signs Temp 98.7 F 06/29/20 07:42 Pulse 87 06/29/20 07:42 Resp 16 06/29/20 07:42 BP 103/64 06/29/20 07:42 Pulse Ox 97 06/29/20 07:42 Intake & Output 06/28/20 06/29/20 06/29/20 18:59 06:59 18:59 Intake Total 1020 Balance 1020 Weight 83.915 kg Intake: IV 1020 Dextrose 5%-0.45% NaCl 1, 1020 000 ml @ 85 mls/hr IV . [id number] [facility] Rx#:[id number] Other: Voiding Method Incontinent Incontinent # Voids 0 # Bowel Movements 4 - Exam General: The patient is awake and alert, in no distress. She appeared jaundiced. Eye: there is normal conjunctiva bilaterally. Neck: The neck is supple, there is no JVD. Cardiovascular: Normal S1-S2, no S3-S4, no murmurs. Respiratory: Lungs clear to auscultation bilaterally Gastrointestinal: Abdomen is significantly distended with evidence of large asc ites Musculoskeletal: There is no pedal edema. Neurological:. Speech is normal. Skin: Skin is warm and dry - Labs CBC & Chem 7: 06/29/20 09:09 06/28/20 06:15 Labs: Abnormal Lab Results - Last 24 Hours (Table) 06/29/20 06/29/20 Range/Units 06:13 09:09 RBC 3.10 L (3.80-5.40) m/uL Hgb 11.3 L (11.4-16.0) gm/dL MCV 112.5 H (80.0-100.0) fL MCH 36.5 H (25.0-35.0) pg Plt Count 144 L (150-450) k/uL Macrocytosis Marked A Ammonia 66 H (<30) umol/L Assessment and Plan Assessment: 1. Hepatic Encephalopathy 2. JUAN with cirrhosis 3. Ovarian Neoplasm 59 year old woman who presented with lethargy and liver failure was discovered to have hepatic encephalopathy secondary to JUAN upon review of [place] Records. 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
[2020-06-29 15:11] LABS: INR 1.58 (0.90-1.11); Prothrombin Time 16.5 sec (9.9-11.9)
[2020-06-29 16:21] LABS: African American GFR (CKD) 70.9 (60.0-200.0); Albumin 2.9 g/dL (3.80-4.90); Albumin/Globulin Ratio 0.78 (1.60-3.17); Anion Gap 7.3 mmol/L (4.00-12.00); Calcium 8.5 mg/dL (8.7-10.3); Carbon Dioxide 21.7 mmol/L (21.6-31.8); Globulin 3.7 g/dL (1.6-3.3); Non-African American GFR(CKD) 61.2 (60.0-200.0); Potassium 3.2 mmol/L (3.5-5.5); Total Bilirubin 5.2 mg/dL (0.2-1.2); Total Protein 6.6 g/dL (6.2-8.2)
[2020-06-29] MEDS ORDERED: POTASSIUM CHLORIDE ER 20 MEQ TAB.ER PO STA (22:47)
[2020-06-30] MEDS: THIAMINE 100 MG TAB PO SCH ×2 (08:10→18:09)
[2020-06-30] MEDS: LACTULOSE 20 GM/30 ML CUP PO SCH ×3 (08:10→20:15)
[2020-06-30] MEDS: RIFAXIMIN 550 MG TABLET PO SCH ×2 (08:10→20:15)
[2020-06-30 09:17] LABS: Basophils % (A) 1 %; Eosinophils # (A) 0.2 k/uL (0-0.7); Eosinophils % (A) 3 %; HCT 38.4 % (34.0-46.0); Lymphocytes # (A) 1.4 k/uL (1.0-4.8); Lymphocytes % (A) 20 %; MCH 34.5 pg (25.0-35.0); MCHC 31.4 g/dL (31.0-37.0); MCV 110.1 fL (80.0-100.0); Macrocytosis Marked; Mean Platelet Volume 6.9; Monocytes # (A) 0.4 k/uL (0-1.0); Monocytes % (A) 5 %; Neutrophils # (A) 4.9 k/uL (1.3-7.7); Neutrophils % (A) 70 %; Platelet Count 158 k/uL (150-450); RBC 3.48 m/uL (3.80-5.40); RDW 15.3 % (11.5-15.5); WBC 7.1 k/uL (3.8-10.6)
[2020-06-30 10:22] LABS: Poikilocytosis (M) Present; RBC Fragments Present
[2020-06-30 11:33] LABS: INR 1.56 (0.90-1.11); Prothrombin Time 16.3 sec (9.9-11.9)
--- NOTE | 2020-06-30 12:02 | US ---
Ultrasound-guided paracentesis. DATE OF EXAM: 06/30/2020 CLINICAL HISTORY: Ascites The procedure was discussed with the patient. The risks, complications, benefits, and alternatives we re discussed and any questions were answered. Informed consent was obtained. The patient was placed s upine on the ultrasound table and prepped and draped in the usual sterile fashion. All elements of maximal barrier technique were utilized. Under ultrasound guidance, access into the left lower quadrant was obtained, via the paracentesis catheter system and direct ultrasound guidance . Approximately 7.2 liters of straw-colored fluid was removed. The patient was stable throughout the pr ocedure and remained stable upon discharge from Department of Radiology. IMPRESSION: Successful paracentesis under ultrasound guidance.
--- NOTE | 2020-06-30 13:48 | P.PN ---
Subjective Progress Note Date: 06/30/20 Principal diagnosis: Decompensated Hill cirrhosis, hepatic encephalopathy This patient is a 59-year-old female who came into the emergency department with altered mental status changes. She has a history of decompensated Hill cirrhosis which was recently admitted into [facility]. She was status post paracentesis at that time, according to the hospital record s she had a paracentesis on 1120 with 9.9 L removed, 1123 per 7.2 L removed and again on 06/19/2020 for 6.2 L removed. The patient was seen and examined, she is alert and oriented 3. She is scheduled for a paracentesis. She states she believes she's been getting paracentesis about every week. 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 She states that she was diagnosed with liver disease with less than a year ago. She is denying any nausea or vomiting, has mild discomfort in her abdomen due to distention. Has been having at least 3-4 bowel movements yesterday. She reports no bowel movement as of this morning. Objective - Vital Signs Vital signs: Vital Signs Temp 98.4 F 06/30/20 10:21 Pulse 85 06/30/20 11:26 Resp 18 06/30/20 11:26 BP 112/67 06/30/20 11:26 Pulse Ox 100 06/30/20 11:26 Intake & Output 06/29/20 06/30/20 06/30/20 18:59 06:59 18:59 Intake Total 200 Balance 200 Intake: Oral 200 Other: Voiding Method Incontinent Incontinent Incontinent # Voids 1 # Bowel Movements 2 - Exam General appearance: The patient is alert, oriented, in no acute distress. HET: Head is normocephalic and atraumatic. Conjunctiva pink. Sclera anicteric. Neck: Supple without lymphadenopathy. Abdomen: Soft, nontender, distended, positive bowel sounds. No guarding or rigidity. Extremities: Normal skin color and turgor. No pedal edema Neurological: No focal deficits. Alert and oriented 3. - Labs CBC & Chem 7: 06/30/20 07:55 06/29/20 09:09 Labs: Abnormal Lab Results - Last 24 Hours (Table) 06/29/20 06/29/20 06/30/20 Range/Units 09:09 09:09 07:55 RBC 3.48 L (3.80-5.40) m/uL MCV 110.1 H (80.0-100.0) fL Macrocytosis Marked A PT 16.5 H (9.9-11.9) sec INR 1.58 H (0.90-1.11) Potassium 3.2 L (3.5-5.5) mmol/L Glucose 126 H (70-110) mg/dL Calcium 8.5 L (8.7-10.3) mg/dL Total Bilirubin 5.2 H (0.2-1.2) mg/dL AST 208 H (13-35) U/L ALT 57 H (8-44) U/L Ammonia (<30) umol/L Albumin 2.90 L (3.80-4.90) g/dL Globulin 3.7 H (1.6-3.3) g/dL Albumin/Globulin Ratio 0.78 L (1.60-3.17) g/dL 06/30/20 06/30/20 Range/Units 07:55 07:55 RBC (3.80-5.40) m/uL MCV (80.0-100.0) fL Macrocytosis PT 16.3 H (9.9-11.9) sec INR 1.56 H (0.90-1.11) Potassium (3.5-5.5) mmol/L Glucose (70-110) mg/dL Calcium (8.7-10.3) mg/dL Total Bilirubin (0.2-1.2) mg/dL AST (13-35) U/L ALT (8-44) U/L Ammonia 71 H (<30) umol/L Albumin (3.80-4.90) g/dL Globulin (1.6-3.3) g/dL Albumin/Globulin Ratio (1.60-3.17) g/dL Assessment and Plan (1) Hepatic encephalopathy Narrative/Plan: 59-year-old female with a medical history significant for decompensated cirrhosis of unknown etiology who presented to the hospital for evaluation of worsening mentation. Markedly elevated ammonia level on presentation of 231 the patient is currently receiving rectal lactulose therapy due to her mental status. She is previously required paracentesis. Liver enzymes are suggestive of alcoholic cirrhosis with total bilirubin 3.8, pleasant phosphatase 81, AST 220 and ALTs 47. Ammonia today 71 with patient much more awake, or and oriented 3. Records from [facility] stating that patient has decompensated Hill cirrhosis with encephalopathy. Current Visit: Yes Status: Acute Code(s): K72.90 - HEPATIC FAILURE, UNSPECIFIED WITHOUT COMA SNOMED Code(s): 40563467 (2) Altered mental status Current Visit: Yes Status: Acute Code(s): R41.82 - ALTERED MENTAL STATUS, UN SPECIFIED SNOMED Code(s): 516871082 (3) Decompensation of cirrhosis of liver Current Visit: Yes Status: Acute Code(s): K72.90 - HEPATIC FAILURE, UNSPECIFIED WITHOUT COMA; K74.60 - UNSPECIFIED CIRRHOSIS OF LIVER SNOMED Code(s): 115352069 Plan: Supportive care Okay for low sodium diet Continue to monitor CBC, BMP, LFTs, ammonia Continue to monitor clinically Lactulose increased to BID,titrate for 3-4 bowel movements daily Rifaximin added by primary team Therapeutic Paracentesis ordered Patient will need follow-up with her gastroenterology, driver starting gate Dr. Palma for possible liver transplant Thank you for allowing us to participate in the care of the patient we will continue to follow Dr. Dara Davila I agree with the dictator's note, documented as a scribe by Yumiko Cox.
[2020-06-30] MEDS: ALBUMIN HUMAN 25% 50 ML in EMPTY BAG 1 BAG IVPB SCH ×3 (14:41→15:22)
--- NOTE | 2020-06-30 15:01 | P.PN ---
Subjective Progress Note Date: 06/30/20 Patient is more alert today and her mentation is significantly better. She is scheduled for paracentesis. No acute events overnight reported by nursing staff. Objective - Vital Signs Vital signs: Vital Signs Temp 98.4 F 06/30/20 10:21 Pulse 85 06/30/20 11:26 Resp 18 06/30/20 11:26 BP 112/67 06/30/20 11:26 Pulse Ox 100 06/30/20 11:26 Intake & Output 06/29/20 06/30/20 06/30/20 18:59 06:59 18:59 Intake Total 200 Balance 200 Intake: Oral 200 Other: Voiding Method Incontinent Incontinent Incontinent # Voids 1 # Bowel Movements 2 - Exam General: The patient is awake and alert, in no distress. She appeared anna diced. Eye: there is normal conjunctiva bilaterally. Neck: The neck is supple, there is no JVD. Cardiovascular: Normal S1-S2, no S3-S4, no murmurs. Respiratory: Lungs clear to auscultation bilaterally Gastrointestinal: Abdomen is significantly distended with evidence of large ascites Musculoskeletal: There is no pedal edema. Neurological:. Speech is normal. Skin: Skin is warm and dry - Labs CBC & Chem 7: 06/30/20 07:55 06/29/20 09:09 Labs: Abnormal Lab Results - Last 24 Hours (Table) 06/29/20 06/29/20 06/30/20 Range/Units 09:09 09:09 07:55 RBC 3.48 L (3.80-5.40) m/uL MCV 110.1 H (80.0-100.0) fL Macrocytosis Marked A PT 16.5 H (9.9-11.9) sec INR 1.58 H (0.90-1.11) Potassium 3.2 L (3.5-5.5) mmol/L Glucose 126 H (70-110) mg/dL Calcium 8.5 L (8.7-10.3) mg/dL Total Bilirubin 5.2 H (0.2-1.2) mg/dL AST 208 H (13-35) U/L ALT 57 H (8-44) U/L Ammonia (<30) umol/L Albumin 2.90 L (3.80-4.90) g/dL Globulin 3.7 H (1.6-3.3) g/dL Albumin/Globulin Ratio 0.78 L (1.60-3.17) g/dL 06/30/20 06/30/20 Range/Units 07:55 07:55 RBC (3.80-5.40) m/uL MCV (80.0-100.0) fL Macrocytosis PT 16.3 H (9.9-11.9) sec INR 1.56 H (0.90-1.11) Potassium (3.5-5.5) mmol/L Glucose (70-110) mg/dL Calcium (8.7-10.3) mg/dL Total Bilirubin (0.2-1.2) mg/dL AST (13-35) U/L ALT (8-44) U/L Ammonia 71 H (<30) umol/L Albumin (3.80-4.90) g/dL Globulin (1.6-3.3) g/dL Albumin/Globulin Ratio (1.60-3.17) g/dL Assessment and Plan Assessment: 1. Hepatic Encephalopathy 2. JUAN with cirrhosis with recurrent ascites paracentesis dependent almost weekly 3. Ovarian Neoplasm 59 year old woman who presented with lethargy and liver failure was discovered to have hepatic encephalopathy secondary to JUAN upon review of [place] Records. 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 (patient still considering surgery) -GI consult, appreciate recs -Continue with lactulose and titrate for 3-4 bowel movements per day -Rifaximin added to her regimen, I asked social work to check if is covered by her insurance -Monitor liver function tests and lipase levels large ascites -Ultrasound-guided paracentesis today with approximately 7 L removed -Albumin ordered -I also started the patient on Lasix 40 mg twice daily and spironolactone 50 mg daily Lactic acidosis -Resolved Anemia of chronic disease Elevated INR -Likely due to chronic liver disease -No signs of active bleeding at this time DVT prophylaxis -IPCDs Patient is having social problems as she does not have a place to stay and she is staying with her friends. pond worker is been involved.
[2020-06-30 15:21] LABS: Appearance,BF Clear
[2020-06-30 15:23] LABS: Nucleated Cells, Body Fluid 45 /uL; RBC, Body Fluid 350 /uL
[2020-06-30 15:26] LABS: Mononuclear WBC,Body Fluid 91 %; Polynuclear WBC,Body Fluid 9 %; Total Cells Counted,Body Fluid 100
[2020-06-30 17:08] LABS: African American GFR (CKD) 70.9 (60.0-200.0); Calcium 9.3 mg/dL (8.7-10.3); Magnesium 1.7 mg/dL (1.5-2.4); Non-African American GFR(CKD) 61.2 (60.0-200.0); Potassium 4.3 mmol/L (3.5-5.5); Total Bilirubin 3.9 mg/dL (0.3-1.2); Total Protein 7.4 g/dL (6.2-8.2)
[2020-06-30] MEDS: FUROSEMIDE 40 MG TAB PO SCH (18:09)
[2020-06-30] MEDS: SPIRONOLACTONE 25 MG TAB PO SCH (18:09)
[2020-06-30 22:42] LABS: Albumin 3.2 g/dL (3.80-4.90); Albumin/Globulin Ratio 0.76 (1.60-3.17); Globulin 4.2 g/dL (1.6-3.3)
[2020-07-01] MEDS: THIAMINE 100 MG TAB PO SCH ×2 (07:38→17:17)
[2020-07-01] MEDS: LACTULOSE 20 GM/30 ML CUP PO SCH ×3 (07:38→21:58)
[2020-07-01] MEDS: FUROSEMIDE 40 MG TAB PO SCH ×2 (07:39→15:54)
[2020-07-01] MEDS: SPIRONOLACTONE 25 MG TAB PO SCH (07:41)
[2020-07-01] MEDS: RIFAXIMIN 550 MG TABLET PO SCH ×2 (07:41→21:58)
[2020-07-01 07:51] LABS: Basophils % (A) 1 %; Eosinophils # (A) 0.2 k/uL (0-0.7); Eosinophils % (A) 3 %; HCT 32.6 % (34.0-46.0); HGB 10.3 gm/dL (11.4-16.0); Lymphocytes % (A) 16 %; MCH 34.5 pg (25.0-35.0); MCHC 31.6 g/dL (31.0-37.0); MCV 109.1 fL (80.0-100.0); Macrocytosis Marked; Mean Platelet Volume 7.4; Monocytes # (A) 0.4 k/uL (0-1.0); Monocytes % (A) 6 %; Neutrophils # (A) 4.4 k/uL (1.3-7.7); Neutrophils % (A) 72 %; Platelet Count 121 k/uL (150-450); RBC 2.99 m/uL (3.80-5.40); RDW 15.4 % (11.5-15.5); WBC 6.2 k/uL (3.8-10.6)
[2020-07-01 08:03] LABS: Poikilocytosis (M) Present
--- NOTE | 2020-07-01 09:31 | P.PN ---
Subjective Progress Note Date: 07/01/20 Principal diagnosis: Decompensated Hill cirrhosis, hepatic encephalopathy This patient is a 59-year-old female who came into the emergency department with altered mental status changes. She has a history of decompensated Hill cirrhosis which was recently admitted into [facility]. She was status post paracentesis at that time, according to the hospital record s she had a paracentesis on 1120 with 9.9 L removed, 1123 per 7.2 L removed and again on 06/19/2020 for 6.2 L removed. The patient was seen and examined, she is alert and oriented 3. She is scheduled for a paracentesis. She states she believes she's been getting paracentesis about every week. 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 She states that she was diagnosed with liver disease with less than a year ago. Had a paracentesis yesterday was 7.2 L removed. She is denying any nausea or vomiting, discomfort in her abdomen is improved. She is alert and orientated to person, hospital but not city she is in, and year. States she was staying with a friend and nubia Aquino. 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 She'll work is working with patient. Plan is for possible discharge today. Today's ammonia level 56, improved. Objective - Vital Signs Vital signs: Vital Signs Temp 98.5 F 07/01/20 07:11 Pulse 89 07/01/20 02:41 Resp 17 07/01/20 07:11 BP 114/70 07/01/20 07:11 Pulse Ox 100 07/01/20 02:41 Intake & Output 06/30/20 07/01/20 07/01/20 18:59 06:59 18:59 Intake Total 200 Balance 200 Intake: Oral 200 Other: Voiding Method Incontinent Incontinent # Voids 1 # Bowel Movements 1 2 - Exam General appearance: The patient is alert, oriented, in no acute distress. HET: Head is normocephalic and atraumatic. Conjunctiva pink. Sclera anicteric. Neck: Supple without lymphadenopathy. Abdomen: Soft, nontender, less distended, positive bowel sounds. No guarding or rigidity. Extremities: Normal skin color and turgor. No pedal edema Neurological: No focal deficits. Alert and oriented 3. - Labs CBC & Chem 7: 07/01/20 06:24 06/30/20 07:55 Labs: Abnormal Lab Results - Last 24 Hours (Table) 06/30/20 06/30/20 06/30/20 Range/Units 07:55 07:55 07:55 RBC 3.48 L (3.80-5.40) m/uL Hgb (11.4-16.0) gm/dL Hct (34.0-46.0) % MCV 110.1 H (80.0-100.0) fL Plt Count (150-450) k/uL Macrocytosis Marked A PT 16.3 H (9.9-11.9) sec INR 1.56 H (0.90-1.11) Carbon Dioxide 21.0 L (21.6-31.8) mmol/L Total Bilirubin 3.9 H (0.3-1.2) mg/dL AST 245 H (13-35) U/L ALT 61 H (8-44) U/L Ammonia (<30) umol/L Albumin 3.20 L (3.80-4.90) g/dL Globulin 4.2 H (1.6-3.3) g/dL Albumin/Globulin Ratio 0.76 L (1.60-3.17) g/dL 07/01/20 07/01/20 Range/Units 06:24 06:24 RBC 2.99 L (3.80-5.40) m/uL Hgb 10.3 L (11.4-16.0) gm/dL Hct 32.6 L (34.0-46.0) % MCV 109.1 H (80.0-100.0) fL Plt Count 121 L (150-450) k/uL Macrocytosis Marked A PT (9.9-11.9) sec INR (0.90-1.11) Carbon Dioxide (21.6-31.8) mmol/L Total Bilirubin (0.3-1.2) mg/dL AST (13-35) U/L ALT (8-44) U/L Ammonia 56 H (<30) umol/L Albumin (3.80-4.90) g/dL Globulin (1.6-3.3) g/dL Albumin/Globulin Ratio (1.60-3.17) g/dL Microbiology - Last 24 Hours (Table) 06/30/20 10:43 Gram Stain - Preliminary Ascites Fluid Body Fluid Culture - Preliminary 06/30/20 10:43 Anaerobic Culture - Preliminary Ascites Fluid Assessment and Plan (1) Hepatic encephalopathy Narrative/Plan: 59-year-old female with a medical history significant for decompensated cirrhosis of unknown etiology who presented to the hospital for evaluation of worsening mentation. Markedly elevated ammonia level on presentation of 231 the patient is currently receiving rectal lactulose therapy due to her mental status. She is previously required paracentesis. Liver enzymes are suggestive of alcoholic cirrhosis with total bilirubin 3.8, pleasant phosphatase 81, AST 220 and ALTs 47. Ammonia today 56 with patient much more awake, and oriented 3. Records from [facility] stating that patient has decompensated Hill cirrhosis with encephalopathy. Current Visit: Yes Status: Acute Code(s): K72.90 - HEPATIC FAILURE, UNSPECIFIED WITHOUT COMA SNOMED Code(s): 47114661 (2) Altered mental status Current Visit: Yes Status: Acute Code(s): R41.82 - ALTERED MENTAL STATUS, UNSPECIFIED SNOMED Code(s): 387130730 (3) Decompensation of cirrhosis of liver Current Visit: Yes Status: Acute Code(s): K72.90 - HEPATIC FAILURE, UNSPECIFIED WITHOUT COMA; K74.60 - UNSPECIFIED CIRRHOSIS OF LIVER SNOMED Code(s): 869051101 Plan: Supportive care Okay for low sodium diet Continue to monitor CBC, BMP, LFTs, ammonia Continue to monitor clinically Lactulose 20mg TID, titrate to have 3-4 bowel movements daily Rifaximin added by primary team Therapeutic Paracentesis completed, 7.2 L removed Patient will need follow-up with her gastroenterology, buffer chrome Dr. Palma for possible liver transplant Thank you for allowing us to participate in the care of the patient we will continue to follow Dr. Dara Davila I agree with the dictator's note, documented as a scribe by Yumiko Cox.
--- NOTE | 2020-07-01 11:09 | P.PN ---
Subjective Progress Note Date: 07/01/20 Principal diagnosis: Altered mental status. Patient seen and examined at bedside. She denies chest pain, shortness breath, nausea, vomiting, fevers, or chills. Patient is alert and responds to questions and commands appropriately. Patient currently has no concerns. Patient is a 59-year-old female with a PMH of liver disease of unknown etiology who was brought into the emergency room due to altered mental status. The patient had apparently recently been evaluated at [facility] where she had undergone a paracentesis (based upon the papers brought in by EMS provided to them by patient's friends). She had been staying with a group of friends since then the noted that the patient's mentation gradually worsened to the point where she was unaware of her surroundings and not able to converse. The patient's evaluation from the emergency room was reviewed with laboratory evaluation showing an ammonia of 231, lipase 1235, albumin 3.0, AST 220, ALT 47, lactic acid 3.4, INR 1.7, and a hemoglobin of 10.0. Objective - Vital Signs Vital signs: Vital Signs Temp 98.5 F 07/01/20 07:11 Pulse 89 07/01/20 02:41 Resp 17 07/01/20 07:11 BP 114/70 07/01/20 07:11 Pulse Ox 100 07/01/20 02:41 Intake & Output 06/30/20 07/01/20 07/01/20 18:59 06:59 18:59 Intake Total 200 Balance 200 Intake: Oral 200 Other: Voiding Method Incontinent Incontinent # Voids 1 # Bowel Movements 1 2 - Exam General: [non toxic], [no distress], [appears at stated age] Derm: [warm], [dry] Head: [atraumatic], [normocephalic], [symmetric] Eyes: [EOMI], [no lid lag], [anicteric sclera] Mouth: [no lip lesion], [mucus membranes moist] Cardiovascular: [S1S2 reg], [no murmur], [positive posterior tibial pulse bilateral], Lungs: [CTA bilateral], [no rhonchi, no rales] , [no accessory muscle use] Abdominal: [soft distended], [ nontender to palpation], [no guarding] Ext: [no gross muscle atrophy], [no edema], [no contractures] Neuro: [ CN II-XI grossly intact], [no focal neuro deficits] Psych: [Alert], [oriented], [appropriate affect] - Constitutional Constitutional Comment(s): A 14 point review of systems was assessed patient was only positive for those in HPI. - Labs CBC & Chem 7: 07/01/20 06:24 06/30/20 07:55 Labs: Abnormal Lab Results - Last 24 Hours (Table) 06/30/20 06/30/20 07/01/20 Range/Units 07:55 07:55 06:24 RBC (3.80-5.40) m/uL Hgb (11.4-16.0) gm/dL Hct (34.0-46.0) % MCV (80.0-100.0) fL Plt Count (150-450) k/uL Macrocytosis PT 16.3 H (9.9-11.9) sec INR 1.56 H (0.90-1.11) Carbon Dioxide 21.0 L (21.6-31.8) mmol/L Total Bilirubin 3.9 H (0.3-1.2) mg/dL AST 245 H (13-35) U/L ALT 61 H (8-44) U/L Ammonia 56 H (<30) umol/L Albumin 3.20 L (3.80-4.90) g/dL Globulin 4.2 H (1.6-3.3) g/dL Albumin/Globulin Ratio 0.76 L (1.60-3.17) g/dL 07/01/20 Range/Units 06:24 RBC 2.99 L (3.80-5.40) m/uL Hgb 10.3 L (11.4-16.0) gm/dL Hct 32.6 L (34.0-46.0) % MCV 109.1 H (80.0-100.0) fL Plt Count 121 L (150-450) k/uL Macrocytosis Marked A PT (9.9-11.9) sec INR (0.90-1.11) Carbon Dioxide (21.6-31.8) mmol/L Total Bilirubin (0.3-1.2) mg/dL AST (13-35) U/L ALT (8-44) U/L Ammonia (<30) umol/L Albumin (3.80-4.90) g/dL Globulin (1.6-3.3) g/dL Albumin/Globulin Ratio (1.60-3.17) g/dL Microbiology - Last 24 Hours (Table) 06/30/20 10:43 Gram Stain - Preliminary Ascites Fluid Body Fluid Culture - Preliminary 06/30/20 10:43 Anaerobic Culture - Preliminary Ascites Fluid Assessment and Plan Assessment: Hepatic encephalopathy in setting of liver failure, improved mental status -Decompensated liver cirrhosis secondary to JUAN, 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 (patient still considering surgery) -GI recommendations appreciated -Continue with lactulose and titrate for 3-4 bowel movements per day -Rifaximin added to her regimen -Monitor liver function tests and lipase levels large ascites -Ultrasound-guided paracentesis yesterday with approximately 7 L removed -Albumin given yesterday -Lasix 40 mg twice daily and spironolactone 50 mg daily Lactic acidosis -Resolved Anemia of chronic disease Elevated INR -Likely due to chronic liver disease -No signs of active bleeding at this time DVT prophylaxis -IPCDs PT/OT ordered for placement Social work is currently working with the patient to transfer to a rehab facility in [place] Time with Patient: Greater than 30
[2020-07-01 12:48] LABS: Basophils % (A) 1 %; Eosinophils # (A) 0.2 k/uL (0-0.7); Eosinophils % (A) 3 %; HCT 32.3 % (34.0-46.0); HGB 10.4 gm/dL (11.4-16.0); Lymphocytes # (A) 0.9 k/uL (1.0-4.8); Lymphocytes % (A) 14 %; MCH 35.4 pg (25.0-35.0); MCHC 32.2 g/dL (31.0-37.0); Macrocytosis Marked; Mean Platelet Volume 7.2; Monocytes # (A) 0.5 k/uL (0-1.0); Monocytes % (A) 8 %; Neutrophils # (A) 4.7 k/uL (1.3-7.7); Neutrophils % (A) 72 %; Platelet Count 123 k/uL (150-450); RBC 2.94 m/uL (3.80-5.40); RDW 14.9 % (11.5-15.5); WBC 6.5 k/uL (3.8-10.6)
[2020-07-01 13:11] LABS: Anisocytosis (M) Present; Poikilocytosis (M) Present
[2020-07-02] MEDS: FUROSEMIDE 40 MG TAB PO SCH ×2 (08:06→17:31)
[2020-07-02] MEDS: SPIRONOLACTONE 25 MG TAB PO SCH (08:06)
[2020-07-02] MEDS: THIAMINE 100 MG TAB PO SCH ×2 (08:06→17:31)
[2020-07-02] MEDS: LACTULOSE 20 GM/30 ML CUP PO SCH ×3 (08:06→21:10)
[2020-07-02] MEDS: RIFAXIMIN 550 MG TABLET PO SCH ×2 (08:07→21:08)
--- NOTE | 2020-07-02 13:24 | P.PN ---
Subjective Progress Note Date: 07/02/20 Principal diagnosis: Decompensated Hill cirrhosis, hepatic encephalopathy This patient is a 59-year-old female who came into the emergency department with altered mental status changes. She has a history of decompensated Hill cirrhosis which was recently admitted into [facility]. She was status post paracentesis at that time, according to the hospital record s she had a paracentesis on 1120 with 9.9 L removed, 1123 per 7.2 L removed and again on 06/19/2020 for 6.2 L removed. The patient was seen and examined, she is alert and oriented 3. She is scheduled for a paracentesis. She states she believes she's been getting paracentesis about every week. She states that she was diagnosed with liver disease with less than a year ago. She is lying in bed appears to be in no acute distress. She is denying any nausea, vomiting, or abdominal pain. She is alert and orientated to person, hospital but not city she is in, and year. Patient has been cleared for discharge, however they are having a difficult time for placement for the patient as the patient has no family or place to go. Objective - Vital Signs Vital signs: Vital Signs Temp 98.4 F 07/02/20 07:23 Pulse 85 07/02/20 07:23 Resp 18 07/02/20 07:23 BP 98/58 07/02/20 07:23 Pulse Ox 98 07/02/20 07:23 Intake & Output 07/01/20 07/02/20 07/02/20 18:59 06:59 18:59 Intake Total 240 Balance 240 Intake: Oral 240 Other: Voiding Method Toilet Diaper # Voids 2 1 # Bowel Movements 1 - Exam General appearance: The patient is alert, oriented, in no acute distress. HET: Head is normocephalic and atraumatic. Conjunctiva pink. Sclera anicteric. Neck: Supple without lymphadenopathy. Abdomen: Soft, nontender, less distended, positive bowel sounds. No guarding or rigidity. Extremities: Normal skin color and turgor. No pedal edema Neurological: No focal deficits. Alert and oriented 3. Well-developed commands and answers most questions appropriately. - Labs CBC & Chem 7: 07/01/20 11:59 06/30/20 07:55 Labs: Abnormal Lab Results - Last 24 Hours (Table) 12/16/20 Range/Units 11:59 RBC 2.94 L (3.80-5.40) m/uL Hgb 10.4 L (11.4-16.0) gm/dL Hct 32.3 L (34.0-46.0) % MCV 110.0 H (80.0-100.0) fL MCH 35.4 H (25.0-35.0) pg Plt Count 123 L (150-450) k/uL Lymphocytes # 0.9 L (1.0-4.8) k/uL Macrocytosis Marked A Microbiology - Last 24 Hours (Table) 06/30/20 10:43 Gram Stain - Preliminary Ascites Fluid Body Fluid Culture - Preliminary Assessment and Plan (1) Hepatic encephalopathy Narrative/Plan: 59-year-old female with a medical history significant for decompensated cirrhosis of unknown etiology who presented to the hospital for evaluation of worsening mentation. Markedly elevated ammonia level on presentation of 231 the patient is currently receiving rectal lactulose therapy due to her mental status. She is previously required paracentesis. Liver enzymes are suggestive of alcoholic cirrhosis with total bilirubin 3.8, pleasant phosphatase 81, AST 220 and ALTs 47. The patient is much more awake, and oriented 3. Records from [facility] stating that patient has decompensated Hill cirrhosis with encephalopathy. She will need close outpatient follow-up with gastroenterology/hepatology. Current Visit: Yes Status: Acute Code(s): K72.90 - HEPATIC FAILURE, UNSPECIFIED WITHOUT COMA SNOMED Code(s): 69946381 (2) Altered mental status Current Visit: Yes Status: Acute Code(s): R41.82 - ALTERED MENTAL STATUS, UNSPECIFIED SNOMED Code(s): 794069927 (3) Decompensation of cirrhosis of liver Current Visit: Yes Status: Acute Code(s): K72.90 - HEPATIC FAILURE, UNSPECIFIED WITHOUT COMA; K74.60 - UNSPECIFIED CIRRHOSIS OF LIVER SNOMED Code(s): 201888800 Plan: Supportive care Okay for low sodium diet Continue to monitor CBC, BMP, LFTs, ammonia Continue to monitor clinically Lactulose 20mg TID, titrate to have 3-4 bowel movements daily Rifaximin added by primary team Therapeutic Paracentesis completed, 7.2 L removed Patient will need follow-up with her gastroenterology, fibreglass laminator Dr. Palma for possible liver transplant Thank you for allowing us to participate in the care of the patient we will continue to follow Dr. Dara Davila I agree with the dictator's note, documented as a scribe by Yumiko Cox.
--- NOTE | 2020-07-02 14:26 | P.PN ---
Subjective Progress Note Date: 07/02/20 Principal diagnosis: confusion Patient has been getting up and walking ok per PT. She denied any complaints. Had only one BM yesterday and one so far today. No nausea or vomiting. No diiarrhea. No fevers. Objective - Vital Signs Vital signs: Vital Signs Temp 98.4 F 07/02/20 07:23 Pulse 85 07/02/20 07:23 Resp 18 07/02/20 07:23 BP 98/58 07/02/20 07:23 Pulse Ox 98 07/02/20 07:23 Intake & Output 07/01/20 07/02/20 07/02/20 18:59 06:59 18:59 Intake Total 240 Balance 240 Intake: Oral 240 Other: Voiding Method Toilet Diaper # Voids 2 1 # Bowel Movements 1 - Exam General: [non toxic], [no distress], [appears at stated age] Derm: [warm], [dry] Head: [atraumatic], [normocephalic], [symmetric] Eyes: [EOMI], [no lid lag], [anicteric sclera] Mouth: [no lip lesion], [mucus membranes moist] Cardiovascular: [S1S2 reg], [no murmur], [positive posterior tibial pulse bilateral], Lungs: [CTA bilateral], [no rhonchi, no rales] , [no accessory muscle use] Abdominal: [soft distended], [ nontender to palpation], [no guarding] Ext: [no gross muscle atrophy], [no edema], [no contractures] Neuro: [ CN II-XI grossly intact], [no focal neuro deficits] Psych: [Alert], [oriented], [appropriate affect] - Labs CBC & Chem 7: 07/01/20 11:59 06/30/20 07:55 Labs: Microbiology - Last 24 Hours (Table) 06/30/20 10:43 Gram Stain - Preliminary Ascites Fluid Body Fluid Culture - Preliminary Assessment and Plan Plan: Hepatic encephalopathy in setting of liver failure, improved mental status -Decompensated liver cirrhosis secondary to JUAN, 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 (patient still considering surgery) -GI recommendations appreciated -Will increase lactulose to 30gm tid with goal of 3-4 bowel movements per day -Rifaximin added to her regimen -Monitor liver function tests and lipase levels Ovarian cancer/cystadenocarcinoma Patient considering surgery, high risk large ascites -S/p Ultrasound-guided paracentesis with approximately 7 L removed -Albumin given yesterday -Lasix 40 mg twice daily and spironolactone 50 mg daily Lactic acidosis -Resolved Anemia of chronic disease Elevated INR -Likely due to chronic liver disease -No signs of active bleeding at this time DVT prophylaxis -IPCDs PT/OT won't recommend rehab. D/w FLAVIO, called for peer to peer review, seems like patient will not qualify for a rehab placement accroding to her insurance. Would refer to SNF.
[2020-07-03 07:16] VITALS: BP 101/66; PULSE 82; RESP 18; TEMP 97.9
[2020-07-03] MEDS: LACTULOSE 20 GM/30 ML CUP PO SCH (07:31)
[2020-07-03] MEDS: RIFAXIMIN 550 MG TABLET PO SCH (07:32)
[2020-07-03] MEDS: FUROSEMIDE 40 MG TAB PO SCH (07:32)
[2020-07-03] MEDS: THIAMINE 100 MG TAB PO SCH (07:32)
[2020-07-03] MEDS: SPIRONOLACTONE 25 MG TAB PO SCH (07:32)
[2020-07-03 09:17] LABS: HCT 35.2 % (34.0-46.0); HGB 11.5 gm/dL (11.4-16.0); MCH 35.8 pg (25.0-35.0); MCHC 32.8 g/dL (31.0-37.0); MCV 109.2 fL (80.0-100.0); Macrocytosis Marked; Mean Platelet Volume 7.2; Platelet Count 121 k/uL (150-450); RBC 3.22 m/uL (3.80-5.40); RDW 14.6 % (11.5-15.5); WBC 7.9 k/uL (3.8-10.6)
[2020-07-03 09:23] LABS: ALT 47 U/L (4-34); AST 232 U/L (14-36); African American GFR (CKD) 79 (>60 ml/min/1.73 sqM); Albumin 2.8 g/dL (3.5-5.0); Albumin/Globulin Ratio 0.7; Alkaline Phosphatase 76 U/L (38-126); Anion Gap 5 mmol/L; Blood Urea Nitrogen 19 mg/dL (7-17); Calcium 8.7 mg/dL (8.4-10.2); Carbon Dioxide 25 mmol/L (22-30); Chloride 101 mmol/L (98-107); Glucose 150 mg/dL (74-99); Non-African American GFR(CKD) 68 (>60 ml/min/1.73 sqM); Potassium 4.2 mmol/L (3.5-5.1); Sodium 131 mmol/L (137-145); Total Bilirubin 2.6 mg/dL (0.2-1.3); Total Protein 6.8 g/dL (6.3-8.2)
--- NOTE | 2020-07-03 12:02 | P.DS ---
Providers Date of admission: 06/27/20 03:32 Expected date of discharge: 07/03/20 Attending physician: Abisai Dunlap MD Consults: 06/27/20 04:56 Consult Physician Urgent Consulting Provider: Ruddy Ko Consult Reason/Comments: cirrhosis Do you want consulting provider notified?: Yes Primary care physician: Stated None Hospital Course: 59-year-old female with a reported medical history of cirrhosis who presented to the hospital due to altered mental status. Initially when she first presented she was unable to provide history due to her depressed and altered mental status. Apparently, patient was recently hospitalized at [facility] for decompensated liver disease and underwent paracentesis at that time times 2. Patient is from [facility], she was visiting a friend in [place] when she started acting confused. Evaluation in the ER revealed WBC 6.8, hemoglobin 9.8 from 10.0, INR 1.6, platelet count 129,000, total bilirubin 3.8, alkaline phosphatase 81, AST 220, ALTs 47. Ammonia level on presentation was 231. Upon admission she was treated with rectal lactulose. Rifaximin was added to her regimen. Diuretics were also added, lasix and aldactone. Patient also had a paracentesis done and about 7 L of fluids was removed. Her mental status did improve towards the end of the hospitalization. She did not qualify for rehabilitation as she was walking independently. It seems like patient has not been compliant with her appointments and medications. The importance of compliance was reemphasized on her. Arrangements were made for a friend to come and pick her up from the hospital and take her to her place. Patient will be discharged home in stable condition. Time for discharge 35 minutes. Patient Condition at Discharge: Serious Plan - Discharge Summary New Discharge Prescriptions: New Rifaximin [Xifaxan] 550 mg PO BID #60 tablet Spironolactone [Aldactone] 50 mg PO DAILY 30 Days #30 tab Lactulose [Cephulac] 30 gm PO TID 15 Days #2000 ml Furosemide [Lasix] 40 mg PO BID@0900,1600 30 Days #60 tab Thiamine [Vitamin B-1] 100 mg PO BID-W/MEALS 30 Days #60 tab Discharge Medication List Rifaximin [Xifaxan] 550 mg PO BID #60 tablet 06/30/20 [Rx] Furosemide [Lasix] 40 mg PO BID@0900,1600 30 Days #60 tab 07/03/20 [Rx] Lactulose [Cephulac] 30 gm PO TID 15 Days #2000 ml 07/03/20 [Rx] Spironolactone [Aldactone] 50 mg PO DAILY 30 Days #30 tab 07/03/20 [Rx] Thiamine [Vitamin B-1] 100 mg PO BID-W/MEALS 30 Days #60 tab 07/03/20 [Rx] Follow up Appointment(s)/Referral(s): Edwige Davila MD [STAFF PHYSICIAN] - 07/22/20 1:15 pm () None,Stated [Primary Care Provider] - 1-2 days Patient Instructions/Handouts: Acute Liver Failure (DC), Ascites (DC) Activity/Diet/Wound Care/Special Instructions: Dr Clements (gastro enterology) will be calling with an appointment. If you do not hear from the office, please call [phone] and schedule one. This is regarding an evaluation for a liver transplant. Please call and make an appointment with Dr Banda (OBGYN oncology [phone]) and Dr Mccarthy (For a primary care doctor [phone]). It is important to keep your follow up appointments and to take you medications as directed.
--- NOTE | 2020-07-03 13:42 | P.PN ---
Subjective Progress Note Date: 07/03/20 Principal diagnosis: Decompensated Hill cirrhosis, hepatic encephalopathy Patient seen and examined lying in bed. She is awake, alert and oriented 3. Plan is for discharge with a friend. 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 She denies any abdominal pain, nausea, or vomiting. Objective - Vital Signs Vital signs: Vital Signs Temp 97.9 F 07/03/20 07:15 Pulse 82 07/03/20 07:15 Resp 18 07/03/20 07:15 BP 101/66 07/03/20 07:15 Pulse Ox 100 07/03/20 07:15 Intake & Output 07/02/20 07/03/20 07/03/20 18:59 06:59 18:59 Other: Voiding Method Toilet Diaper # Voids 3 2 - Exam General appearance: The patient is alert, oriented, in no acute distress. HET: Head is normocephalic and atraumatic. Conjunctiva pink. Sclera anicteric. Neck: Supple without lymphadenopathy. Abdomen: Soft, nontender, mildly distended, positive bowel sounds. No guarding or rigidity. Extremities: Normal skin color and turgor. No pedal edema Neurological: No focal deficits. Alert and oriented 3. - Labs CBC & Chem 7: 07/03/20 08:47 07/03/20 08:47 Labs: Abnormal Lab Results - Last 24 Hours (Table) 07/03/20 07/03/20 07/03/20 Range/Units 08:47 08:47 08:47 RBC 3.22 L (3.80-5.40) m/uL MCV 109.2 H (80.0-100.0) fL MCH 35.8 H (25.0-35.0) pg Plt Count 121 L (150-450) k/uL Macrocytosis Marked A Sodium 131 L (137-145) mmol/L BUN 19 H (7-17) mg/dL Glucose 150 H (74-99) mg/dL Total Bilirubin 2.6 H (0.2-1.3) mg/dL AST 232 H (14-36) U/L ALT 47 H (4-34) U/L Ammonia 46 H (<30) umol/L Albumin 2.8 L (3.5-5.0) g/dL Microbiology - Last 24 Hours (Table) 06/30/20 10:43 Gram Stain - Preliminary Ascites Fluid Body Fluid Culture - Preliminary 06/30/20 10:43 Anaerobic Culture - Preliminary Ascites Fluid Assessment and Plan (1) Hepatic encephalopathy Narrative/Plan: 59-year-old female with a medical history significant for decompensated c irrhosis of unknown etiology who presented to the hospital for evaluation of worsening mentation. Markedly elevated ammonia level on presentation of 231 the patient is currently receiving rectal lactulose therapy due to her mental status. She is previously required paracentesis. Liver enzymes are suggestive of alcoholic cirrhosis with total bilirubin 3.8, pleasant phosphatase 81, AST 220 and ALTs 47. The patient is much more awake, and oriented 3. Records from [facility] stating that patient has decompensated Hill cirrhosis with encephalopathy. She will need close outpatient follow-up with gastroenterology/hepatology. Status: Acute Code(s): K72.90 - HEPATIC FAILURE, UNSPECIFIED WITHOUT COMA SNOMED Code(s): 91997223 (2) Altered mental status Status: Acute Code(s): R41.82 - ALTERED MENTAL STATUS, UNSPECIFIED SNOMED Code(s): 564036071 (3) Decompensation of cirrhosis of liver Status: Acute Code(s): K72.90 - HEPATIC FAILURE, UNSPECIFIED WITHOUT COMA; K74.60 - UNSPECIFIED CIRRHOSIS OF LIVER SNOMED Code(s): 566360237 Plan: Supportive care Okay for low sodium diet Continue to monitor CBC, BMP, LFTs, ammonia Continue to monitor clinically Lactulose 20mg TID, titrate to have 3-4 bowel movements daily Rifaximin added by primary team Therapeutic Paracentesis completed, 7.2 L removed Patient will need follow-up with her gastroenterology, rounding machine operator Dr. Palma for possible liver transplant Thank you for allowing us to participate in the care of the patient. Dr. Ko I agree with the dictator's note, documented as a scribe by Yumiko Cox.
== END 2020-07-03 12:21 | disposition home or self-care (01) | DRG 441 ==
LOC: EC 01:11 → 4SSUR 03:32
PROVIDERS: ADMIT Internal Medicine; ATTEND Internal Medicine
PROC: 0W9G3ZZ Drainage of Peritoneal Cavity, Percutaneous Approach (ICD-10-PCS; principal; 2020-06-30 19:40)
DX: K72.90 Hepatic failure, unspecified without coma (principal); K85.90 Acute pancreatitis without necrosis or infection, unspecified; E87.2 Acidosis; R18.8 Other ascites; K75.81 Nonalcoholic steatohepatitis (NASH); K74.60 Unspecified cirrhosis of liver; D63.8 Anemia in other chronic diseases classified elsewhere; D53.9 Nutritional anemia, unspecified; D89.2 Hypergammaglobulinemia, unspecified; N83.9 Noninflammatory disorder of ovary, fallopian tube and broad ligament, unspecified; Z79.899 Other long term (current) drug therapy; Z91.19 Patient's noncompliance with other medical treatment and regimen; Z20.828 Contact with and (suspected) exposure to other viral communicable diseases
CPT/HCPCS: 36410; 36415; 49083; 51701; 76937; 80053; 80306; 80320; 81001; 82140; 82607; 82746; 83605; 83690; 83735; 84100; 85025; 85027; 85610; 87070; 87075; 87205; 87635; 89050; 96360; 96361; 96372; 99285